=== PATIENT | female | born 1925 | race Caucasian/White ===

== ENCOUNTER 2016-08-17 20:09 | Inpatient (IN) | payer MEDICARE ==
[~2016-08-17] VITALS: Ht 165.1 cm; Wt 56.3 kg
[~2016-08-17 20:09] MED LIST: Z.0.NO CURRENT MEDS
[2016-08-17 20:15] VITALS: BP 140/75; PULSE 85; RESP 16; TEMP 97.9; O2SAT 95
[2016-08-17] MEDS ORDERED: TYLE325T PO (20:25)
[2016-08-17] MEDS ORDERED: SERO25TA PO (20:25)
[2016-08-17] MEDS ORDERED: VITA400T14 PO (20:25)
[2016-08-17] MEDS ORDERED: MEMA21CA PO (20:25)
[2016-08-17] MEDS ORDERED: DENO60P SQ (20:25)
[2016-08-17] MEDS ORDERED: LORA-392 PO (20:25)
[2016-08-17] MEDS ORDERED: TEMA15CA PO (20:25)
[2016-08-17] MEDS ORDERED: FLUT1SPR5 EACH NARE (20:25)
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
[2016-08-17 20:43] LABS: AUTOMATED NEUTROPHIL # 11.2 TH/MM3 (1.8-7.7); BASOPHIL % 0.2 % (0.0-2.0); EOSINOPHIL % 0.1 % (0.0-4.0); HEMATOCRIT 35.6 % (35.0-46.0); HEMO FLAGS DIFF FINAL; LYMPH % 6.7 % (9.0-44.0); LYMPHOCYTE # 0.8 TH/MM3 (1.0-4.8); MEAN CELL VOLUME 90.8 FL (80.0-100.0); MEAN CORPUSCULAR HEMOGLOBIN 30.5 PG (27.0-34.0); MEAN CORPUSCULAR HGB CONC 33.6 % (32.0-36.0); MONO % 3.7 % (0.0-8.0); NEUT % 89.3 % (16.0-70.0); PLATELET COUNT 212 TH/MM3 (150-450); RED BLOOD COUNT 3.92 MIL/MM3 (4.00-5.30); RED CELL DISTRIBUTION WIDTH 13.7 % (11.6-17.2); WHITE BLOOD COUNT 12.6 TH/MM3 (4.0-11.0)
[2016-08-17 20:54] LABS: BICARBONATE 27.7 MEQ/L (21.0-32.0); POTASSIUM 3.5 MEQ/L (3.5-5.1)
[2016-08-17 21:01] LABS: APTT (PATIENT) 26.4 SEC (24.3-30.1); PROTHROMBIN TIME - PATIENT 10.6 SEC (9.8-11.6)
--- NOTE | 2016-08-17 21:01 | RADRPT ---
EXAM DATE/TIME: 08/17/2016 20:42 [place] COMPARISON: No previous studies available for comparison. INDICATIONS : Evaluate right hip fracture. RADIATION DOSE: 11.23 CTDIvol (mGy) MEDICAL HISTORY : Dementia. SURGICAL HISTORY : Left total hip. ENCOUNTER: Initial ACUITY: 1 day PAIN SCALE: 10/10 LOCATION: Right Hip. TECHNIQUE: Volumetric scanning of the hip was performed. Using automated exposure control and adjustment of the mA and/or kV according to patient size, radiation dose was kept as low as reasonably achievable to o btain optimal diagnostic quality images. FINDINGS: The bone density is decreased. A left total hip arthroplasty is noted. There is an impacted and commi nuted fracture of the subcapital femoral neck on the right with slight anterior displacement and apex anterior angulation noted. There are degenerative changes of the lower lumbar spine. Diverticulosis of the sigmoid and descending colon. Atherosclerotic calcifications are seen. Nonacute L4 mild compre ssion deformity. CONCLUSION: 1. Impacted comminuted right femoral neck fracture. Brijesh Amaro MD on August 17, 2016 at 20:58 Board Certified Radiologist. This report was verified electronically.
[2016-08-17] MEDS ORDERED: ACETAMINOPHEN 500 MG CPLT PO ONE (21:15)
[2016-08-17] MEDS ORDERED: MORPHINE SULFATE 4 MG/ML INJ IV PUSH ONE (21:30)
[2016-08-17] MEDS ORDERED: NALOXONE HCL 0.4 MG/ML AMP IV PRN (21:45)
[2016-08-17] MEDS ORDERED: SODIUM CHLORIDE 0.9% FLUSH 10 ML FLUSH IV FLUSH PRN (21:45)
--- NOTE | 2016-08-17 22:36 | HHI.HP ---
[facility]ician Unknown Admission Diagnosis Right femoral neck fracture Diagnoses: Chief Complaint: right hip pain, unable to walk Travel History International Travel<30 Days: No Contact w/Intl Traveler <30 Da: No Traveled to Known Affected Are: No History of Present Illness Written by Ruba Montgomery, acting as scribe for Dr. Vinson on 08/17/16 at 22: 35. This is an 89yo female patient with a PMH of dementia was sent in from [facility] for possible right hip fracture. Patient unable to provide meaningful information, therefore information gathered from patient's caregivers at bedside, prior documentation and SNF information. Patient is a resident at [facility] memory unit. Per caregiver report patient was walking and seemed to be herself then in the afternoon patient began to complain about severe right hip pain and was unable to walk. Outpatient X rays were obtained. Outpatient xray of thoracic spine, lumbar spine showed no acute fractures. Osteopenia. Xray right hip showed shortening of the femoral neck highly suspicious for acute femoral neck fracture. No evidence of dislocation. Osteopenia. Patient sent to the ER for further evaluation. Patient does not remember if she fell down or not. Per caregiver there were no witnessed falls during he day. Patient has caregivers 7AM- 7PM. They are concerned that she fell sometime during the night, but again there was no report of witnessed fall. Pt denies any chest pain, sob, n/v, abdominal pain, focal weakness or numbness. Lower extremity CT reveals: 1. Impacted comminuted right femoral neck fracture. Review of Systems ROS Limitations: Poor Historian Except as stated in HPI: all other systems reviewed are Neg Past Family Social History Past Medical History Alzheimer's Dementia agitation/anxiety compression fracture L4, Past Surgical History Appendectomy Reported Medications Tylenol (Acetaminophen) 325 Mg Tab 650 Mg PO TID PRN Temazepam 15 Mg Cap 15 Mg PO HS PRN Ativan (Lorazepam) 0.5 Mg Tab 0.5 Mg PO BID PRN Prolia Inj (Denosumab) 60 Mg/Ml Inj 60 Mg SQ Q180D Namenda Xr (Memantine) 21 Mg Caper 21 Mg PO DAILY Seroquel (Quetiapine Fumarate) 25 Mg Tab 12.5 Mg PO BID Vitamin D2 (Ergocalciferol) 400 Unit Tab 50,000 Units PO WEEKLY Flonase Nasal [place] (Fluticasone Nasal [place]) 50 Mcg/Act [place] 50 Mcg EACH NARE DAILY Allergies: Coded Allergies: Codeine (Verified Allergy, Severe, HALLUCINATIONS, 05/02/07) Demerol (Verified Allergy, Severe, HALLUCINATIONS, 05/02/07) Percodan (Verified Allergy, Severe, HALLUCINATIONS, 05/02/07) Ampicillin (Verified Allergy, Unknown, 05/02/07) Darvon (Verified Allergy, Unknown, 05/02/07) Indocin (Verified Allergy, Unknown, 05/02/07) Uncoded Allergies: ALL CHEMICALS (Allergy, Severe, DYSPNEA, 04/30/07) Active Ordered Medications Current Medications Medications (Trade) Dose Ordered Sig/Mary Beth Route Start Time Stop Time Status Last Admin (NS Flush) 2 ml UNSCH PRN IV FLUSH 08/17/16 21:45 (NS Flush) 2 ml BID IV FLUSH 08/18/16 09:00 (Narcan Inj) 0.4 mg UNSCH PRN IV 08/17/16 21:45 (Morphine Inj) 2 mg Q3H PRN IV PUSH 08/17/16 21:45 Family History Family medical history unable to obtain Social History Lives in memory unit at [facility] has caregivers from 7AM-7PM Patient has Court appointed guardian Reina Siddiqi Per caregiver patient does occasionally drink- caregivers found a bottle of vodka under patient's bed tobacco use- reports she smoked in the past but not for a long time Physical Exam Vital Signs Vital Signs Date Time Temp Pulse Resp B/P Pulse Ox O2 Delivery O2 Flow Rate FiO2 08/17/16 20:15 97.9 85 16 140/75 95 Physical Exam GENERAL: This is a well-nourished, well-developed patient, pleasantly confused SKIN: No rashes, ecchymoses or lesions. Cool and dry. HEAD: Atraumatic. Normocephalic. No temporal or scalp tenderness. EYES: Extraocular motions intact. No scleral icterus. No injection or drainage. CARDIOVASCULAR: Regular rate and rhythm without murmurs, gallops, or rubs. RESPIRATORY: Clear to auscultation. Breath sounds equal bilaterally. No wheezes , rales, or rhonchi. GASTROINTESTINAL: Abdomen soft, non-tender, nondistended. No hepato-splenomegaly , or palpable masses. No guarding. MUSCULOSKELETAL: Right lower extremity shortened. No calf tenderness. Negative Homans sign bilaterally. NEUROLOGICAL: pleasantly confused. 4 out of 5 muscle strength in all muscle groups, RLE limited ROM due to pain. Normal speech. Laboratory Laboratory Tests Test 08/17/16 20:27 White Blood Count 12.6 Red Blood Count 3.92 Hemoglobin 12.0 Hematocrit 35.6 Mean Corpuscular Volume 90.8 Mean Corpuscular Hemoglobin 30.5 Mean Corpuscular Hemoglobin 33.6 Concent Red Cell Distribution Width 13.7 Platelet Count 212 Mean Platelet Volume 8.2 Neutrophils (%) (Auto) 89.3 Lymphocytes (%) (Auto) 6.7 Monocytes (%) (Auto) 3.7 Eosinophils (%) (Auto) 0.1 Basophils (%) (Auto) 0.2 Neutrophils # (Auto) 11.2 Lymphocytes # (Auto) 0.8 Monocytes # (Auto) 0.5 Eosinophils # (Auto) 0.0 Basophils # (Auto) 0.0 CBC Comment DIFF FINAL Differential Comment Prothrombin Time 10.6 Prothromb Time International 1.0 Ratio Activated Partial 26.4 Thromboplast Time Sodium Level 137 Potassium Level 3.5 Chloride Level 100 Carbon Dioxide Level 27.7 Anion Gap 9 Blood Urea Nitrogen 13 Creatinine 0.82 Estimat Glomerular Filtration 66 Rate Random Glucose 160 Calcium Level 8.7 Blood Type O POSITIVE Antibody Screen NEGATIVE Blood Bank Comment Result Diagram: 08/17/16202608/17/162026 Imaging Last Impressions Lower Extremity CT 08/17/16 0000 Signed Impressions: Service Date/Time: Wednesday, August 17, 2016 20:42 - CONCLUSION: 1. Impacted comminuted right femoral neck fracture. Brijesh Amaro MD Assessment and Plan Problem List: (1) Fracture of femoral neck, right ICD Code: S72.001A Status: Acute (2) Alzheimer's dementia ICD Code: G30.9 Status: Chronic Assessment and Plan This is an 89yo female patient with a PMH of dementia was sent in from [facility] for possible right hip fracture. Patient unable to provide meaningful information, therefore information gathered from patient's caregivers at bedside, prior documentation and SNF information. Patient is a resident at [facility]. severe right hip pain and was unable to walk. Lower extremity CT reveals: 1. Impacted comminuted right femoral neck fracture. Right femoral neck fracture CT hip reveals: Impacted comminuted right femoral neck fracture pain control with consult to orthopedic surgery Alzheimer's Dementia agitation/anxiety Continue home medication regiment as indicated Discussed with ER provider, nursing, patient and caregivers at bedside. Patient has Court appointed guardian Reina Siddiqi This note was transcribed by scribe [Ruba Montgomery]. I, Dr. Leela Vinson personally performed the history, physical exam, and medical decision making; and confirmed the accuracy of the information in the transcribed note. Authenticated by Dr. Leela Vinson on 08/17/16 at 22:35. Physician Certification 2 Midnight Certification Type: Admission for Inpatient Services Order for Inpatient Services The services are ordered in accordance with Medicare regulations or non- Medicare payer requirements, as applicable. In the case of services not specified as inpatient-only, they are appropriately provided as inpatient services in accordance with the 2-midnight benchmark. Estimated LOS (days): 3 days is the estimated time the patient will need to remain in the hospital, assuming treatment plan goals are met and no additional complications. Post-Hospital Plan: Not yet determined Problem Qualifiers (1) Fracture of femoral neck, right: Qualified Code: S72.001A - Closed fracture of neck of right femur, initial encounter Ruba Montgomery August 17, 2016 22:35 Leela Vinson MD Sep 05, 2016 12:54
[2016-08-17 23:38] VITALS: BP 155/77; PULSE 93; RESP 19; TEMP 97.4; O2SAT 95
[2016-08-18] MEDS ORDERED: ACETAMINOPHEN 500 MG CPLT PO PRN (00:30)
[2016-08-18] MEDS: MORPHINE SULFATE 4 MG/ML INJ IV PUSH PRN (02:12)
--- NOTE | 2016-08-18 06:21 | PD.ORT.PN ---
Subjective Subjective Remarks s/p right hip fracture patient came from nursing facility. she is demented and not sure of how she hurt her hip. reports right hip pain. denies any other pain. Objective Vitals Vital Signs Date Time Temp Pulse Resp B/P Pulse Ox O2 Delivery O2 Flow Rate FiO2 08/18/16 02:19 16 08/17/16 23:38 97.4 93 19 155/77 95 08/17/16 20:15 97.9 85 16 140/75 95 Result Diagram: 08/17/16202608/17/162026 Other Results Laboratory Tests Test 08/17/16 20:27 Prothrombin Time 10.6 SEC (9.8-11.6) Prothromb Time International 1.0 RATIO Ratio Objective Remarks RLE: pain with motion of her hip. no pain in knee or ankle. NVI distally Assessment & Plan Assessment and Plan 1) Right Femoral Neck Fx -npo -consents -surgery this AM for bipolar veronica arthroplasty Bib Selby August 18, 2016 06:21
[2016-08-18] MEDS ORDERED: NORC5TAB PO (06:29)
[2016-08-18] MEDS ORDERED: XARE10TA PO (06:29)
[2016-08-18] MEDS ORDERED: ERGO1CAP30 PO (06:30)
[2016-08-18] MEDS ORDERED: VITA2000 PO (06:30)
[2016-08-18] MEDS ORDERED: CALCTAB19 PO (06:30)
[2016-08-18] MEDS ORDERED: MAGNESIUM HYDROXIDE SUSP 30 ML CUP PO PRN (08:00)
[2016-08-18] MEDS ORDERED: TEMAZEPAM 15 MG CAP PO PRN (08:00)
[2016-08-18] MEDS ORDERED: ONDANSETRON HCL 4 MG/2 ML VIAL IV PUSH PRN (08:00)
[2016-08-18] MEDS ORDERED: PILL SPLITTER OTHER PRN (08:15)
--- NOTE | 2016-08-18 08:21 | MB ---
cc: ADENIKE LI DATE OF ADMISSION 08/17/2016 DATE OF CONSULTATION 08/18/2016 REASON FOR CONSULTATION Right femoral neck fracture. CONSULTING PHYSICIAN Dr. Royal. HISTORY Ms. Ventura is an 89-year female who has significant dementia. She is at [facility]. The patient has significant dementia and is unable to give any significant history. She has a caregiver. She normally is able to walk relatively well. She had a fall which resulted in right hip pain. She has been unable to stand or ambulate since her fall. The fall was not witnessed. She presented to the emergency room where x-rays revealed a comminuted right femoral neck fracture. She is awake but confused in the emergency department.. PAST MEDICAL HISTORY ILLNESSES Dementia. Anxiety. Osteoporosis. SURGERIES Appendectomy. MEDICATIONS 1. Tylenol. 2. Temazepam. 3. Ativan. 4. Prolia. 5. Namenda. 6. Seroquel. 7. Vitamin D. 8. Flonase. ALLERGIES CODEINE. DEMEROL. PERCODAN. AMPICILLIN. DARVON. INDOCIN. FAMILY HISTORY Unobtainable. SOCIAL HISTORY The patient lives in [facility]. She has significant dementia and is an unable to give further history. REVIEW OF SYSTEMS Unobtainable secondary to dementia. The patient's only complaint currently is her right hip. PHYSICAL EXAMINATION GENERAL: The patient is a thin, 89-year female who is awake but confused. She is thin but appears well-nourished. VITAL SIGNS: Temperature 97.4, pulse 93, respirations 19, blood pressure 155/74, O2 sat 95% on room air. HEENT: The patient is normocephalic. Pupils are equal. NECK: Soft, nontender. Trachea is midline. ABDOMEN: Soft, nontender, nondistended. EXTREMITIES: Examination of bilateral upper extremities reveals no pain with shoulder, elbow or wrist motion. She has good capillary refill in all fingers. Sensation is intact in all fingers. Radial pulses are palpable. Examination of the left leg reveals no pain with hip, knee or ankle motion. Skin is intact. Dorsalis pedis pulses palpable. Sensation is intact. Examination of the right leg reveals pain with any hip motion. She has no tenderness around her knee, tibia or ankle. Skin is intact. Dorsalis pedis pulses palpable. X-RAYS CT scan of the right hip was reviewed. CT scan reveals a mildly comminuted, displaced right femoral neck fracture. IMPRESSION 1. Dementia. 2. Osteoporosis 3. Displaced right femoral neck fracture. PLAN The treatment options were discussed with the patient as well as her caregiver. At this point I would recommend a right hip hemiarthroplasty. The risks of surgery include bleeding, infection, injury to arteries, nerves and blood vessels, hip dislocation, leg length discrepancy as well as medical complications including blood clot, stroke, heart attack and . All questions were answered. I will plan on surgery today. A mid-level provider in my office, nurse practitioner or PA, may see this patient on a follow-up basis and continue to implement the objective of this plan including: Starting or adjusting medications, injections of muscle, tendon, bursa or joints, cast application, orthotic or brace application, physical therapy, further radiographic studies including x-ray, MRI, CT, ultrasounds or bone scan, vascular studies, neurologic studies, or other specialist consultations, and proceeding with surgical management as appropriate. MD EYAL Irving/ERIC /7:37 AM /7:58 AM
[2016-08-18] MEDS ORDERED: TRANEXAMIC ACID INJ 900 MG in SODIUM CHLORIDE 0.9% INJ 100 ML IV SCH (08:30)
[2016-08-18] MEDS ORDERED: GENTAMICIN SULFATE 80 MG/2 ML VIAL ONE (08:33)
[2016-08-18] MEDS ORDERED: VANCOMYCIN HCL 1000 MG VIAL ONE (08:33)
[2016-08-18] MEDS ORDERED: ceFAZolin INJ 1,000 MG VIAL ONE (08:33)
[2016-08-18] MEDS: DOCUSATE SODIUM 100 MG CAP PO SCH ×2 (09:00→19:41)
[2016-08-18] MEDS: SODIUM CHLORIDE 0.9% FLUSH 10 ML FLUSH IV FLUSH SCH ×2 (09:00→19:42)
[2016-08-18] MEDS: QUEtiapine FUMARATE 25 MG TAB PO SCH ×2 (09:00→19:41)
[2016-08-18] MEDS ORDERED: MEMANTINE 21 MG PO SCH (09:00)
[2016-08-18] MEDS: SENNOSIDES 8.6 MG TAB PO SCH (09:00)
--- NOTE | 2016-08-18 09:52 | PD.OP ---
cc: Anthony Montgomery MD Operative Report Date of Surgery: August 18, 2016 Preoperative Diagnosis: right femoral neck fracture Postoperative Diagnosis: Procedure: right hip veronica-arthroplasty Anesthesia: gen Surgeon: Anthony Montgomery Cap Sewer(s): REYNA Blank PA-C The surgical procedure was assisted by my physician kindergarten assistant. My P.A. presence was necessary throughout this case for the manipulation and positioning of the surgical extremity. My P.A. was assisting me throughout the duration of this procedure. The skill set of a physician kindergarten assistant was medically necessary to complete this procedure. During the surgical case the neurosurgical nurse was working at the back table and the physician kindergarten assistant was directly assisting me. Operation and Findings: PLAN OF ACTIVITY Weight bear as tolerated. IMPLANTS USED DePuy Corail size [14] stem with size [44] bipolar head and [+1.5 standard] neck. DRAIN: 7 mm Bhavesh-Flynn drain DETAILS OF PROCEDURE This patient was brought into the operating room and placed on the OR table. The patient was given anesthesia. The patient received IV antibiotics. The patient was then placed in lateral decubitus position. The hip and leg were prepped with alcohol, followed by Hibiclens and draped in a usual sterile fashion. Clean air was used for this procedure. Time out procedure was performed. The procedure began with a 5 inch incision over the posterolateral hip. The subcutaneous tissue was dissected with the Bovie. The iliotibial band were split in line with fibers. The Charnley retractor was placed. The piriformis and external rotators were released from the femur and tagged with a #1 Vicryl suture. The capsule is now incised and tagged with #1 Vicryl. The femoral neck fracture was now visualized. A corkscrew was now used to remove the femoral head. The femoral head was sized and measured. Soft tissue was now protected. The hip skid was placed underneath the femoral neck. An oscillating saw was used to make a femoral neck cut. At this point attention was turned to preparation of the proximal femur. A box osteotome was used to remove the lateral cortex of the femoral neck. The T- handle reamer was used to open the femoral canal. Next, the canal was broached. A lateralizing reamer was used to help lateralize the prosthesis. At this point a trial head and neck were placed. The hip was reduced. The patient was found to have excellent stability with good range of motion. Trial components were removed. Soft tissue and bone were thoroughly irrigated. A Corail stem was now opened. The stem was now impacted into the proximal femur. Care was taken to keep appropriate anteversion. The head and neck were now impacted onto the stem. The hip was again reduced. The hip was found to have good range of motion and good stability. Leg lengths were clinically equal. The wound was thoroughly irrigated. The capsule, piriformis and iliotibial band were closed with #1 Vicryl. Subcutaneous tissue was closed with 3-0 Vicryl. The skin was closed with michell. A sterile dressing was applied with Primapore. The patient was placed into a knee immobilizer. The patient was awakened and transferred to the recovery room in stable condition. Needle and sponge counts were correct. Anthony Montgomery MD August 18, 2016 09:52
[2016-08-18] MEDS ORDERED: MORPHINE SULFATE 4 MG/ML INJ IV PUSH PRN (10:00)
[2016-08-18] MEDS ORDERED: ACETAMINOPHEN/HYDROcodone 325 MG/5 MG TAB PO PRN (10:00)
[2016-08-18] MEDS ORDERED: Post-op Orders (for Pharmacy) MISC XX ONE (10:00)
[2016-08-18] MEDS ORDERED: SODIUM CHLORIDE 0.9% FLUSH 5 ML FLUSH IVF PRN (10:00)
[2016-08-18] MEDS ORDERED: DO NOT ADM ANY ANTICOAGULANT DRUGS PRN (10:30)
--- NOTE | 2016-08-18 11:15 | RADRPT ---
EXAM DATE/TIME: 08/18/2016 10:32 [facility] COMPARISON: No previous studies available for comparison. INDICATIONS : Post op right hip surgery. MEDICAL HISTORY : None. SURGICAL HISTORY : left hip surgery ENCOUNTER: Initial ACUITY: 1 day PAIN SCORE: Non-responsive. LOCATION: Right hip and pelvis FINDINGS: Postoperative changes of right total hip replacement noted. There are skin michell laterally and a dr cornelian in the soft tissues. Left hip previously replaced as well. No complications identified. CONCLUSION: 1. Postoperative recent right total hip replacement. Previous left hip replacement. Phill Cárdenas MD on August 18, 2016 at 11:12 Board Certified Radiologist. This report was verified electronically.
[2016-08-18] MEDS ORDERED: PROPOFOL 200 MG/20 ML AMP IV ONE (12:00)
[2016-08-18] MEDS ORDERED: PHENYLEPH/NS 1000 MCG/10 ML SYR IV ONE (12:00)
[2016-08-18] MEDS ORDERED: SODIUM CHLOR 0.9% 250 ML INJ 500 ML IV ONE (12:00)
[2016-08-18] MEDS ORDERED: ERGOCALCIFEROL (VIT D2) 50,000 UNIT CAP PO ONE (12:00)
[2016-08-18] MEDS ORDERED: PHENYLEPHRINE HCL 10 MG/ML VIAL IV ONE (12:00)
[2016-08-18 13:40] VITALS: BP 147/70; PULSE 99; RESP 16; TEMP 97.5; O2SAT 95
[2016-08-18] MEDS: ACETAMINOPHEN/HYDROcodone 325 MG/5 MG TAB PO PRN ×2 (14:53→19:41)
[2016-08-18 15:49] LABS: AUTOMATED NEUTROPHIL # 9.8 TH/MM3 (1.8-7.7); BASOPHIL # 0.1 TH/MM3 (0-0.2); BASOPHIL % 0.5 % (0.0-2.0); EOSINOPHIL # 0.1 TH/MM3 (0-0.4); HEMATOCRIT 34.6 % (35.0-46.0); HEMO FLAGS AUTO DIFF; LYMPH % 10.4 % (9.0-44.0); LYMPHOCYTE # 1.2 TH/MM3 (1.0-4.8); MEAN CELL VOLUME 91.7 FL (80.0-100.0); MEAN CORPUSCULAR HEMOGLOBIN 30.7 PG (27.0-34.0); MEAN CORPUSCULAR HGB CONC 33.5 % (32.0-36.0); NEUT % 82.1 % (16.0-70.0); PLATELET COUNT 198 TH/MM3 (150-450); RED BLOOD COUNT 3.78 MIL/MM3 (4.00-5.30); RED CELL DISTRIBUTION WIDTH 13.9 % (11.6-17.2); WHITE BLOOD COUNT 11.9 TH/MM3 (4.0-11.0)
--- NOTE | 2016-08-18 15:58 | HHI.PR ---
Subjective Remarks Follow-up for right hip fracture. The patient had operative repair of her right hip fracture with orthopedics earlier today. The patient reports that her hip pain is "nearly gone". The patient is seen with her caregiver bedside is all as RN. Therefore the patient states even drink coffee earlier today. The patient has a history of dementia and does not recall any falls or injury to her right hip. RN and patient's caregiver reported that the patient was a bit agitated earlier, and are requesting her home Ativan to be restarted. Objective Vitals Vital Signs Date Time Temp Pulse Resp B/P Pulse Ox O2 Delivery O2 Flow Rate FiO2 08/18/16 13:40 97.5 99 16 147/70 95 08/18/16 13:00 99.6 94 15 130/59 99 Room Air 08/18/16 12:00 83 21 123/65 100 Room Air 08/18/16 11:30 97.4 85 24 126/61 96 Nasal Cannula 2 08/18/16 11:15 84 20 144/71 96 Nasal Cannula 2 08/18/16 11:00 96.6 83 23 130/86 100 Nasal Cannula 2 08/18/16 10:45 91 23 119/65 100 Nasal Cannula 2 08/18/16 10:30 72 10 112/59 100 Nasal Cannula 2 08/18/16 10:15 78 18 154/84 98 Nasal Cannula 2 08/18/16 10:13 97.2 78 16 116/63 98 Nasal Cannula 2 08/18/16 02:19 16 08/17/16 23:38 97.4 93 19 155/77 95 08/17/16 20:15 97.9 85 16 140/75 95 I/O 08/17/16 08/17/16 08/17/16 08/18/16 08/18/16 08/18/16 07:00 15:00 23:00 07:00 15:00 23:00 Intake Total 700 ml Output Total 1250 ml Balance -550 ml Intake Oral 0 ml IV Total 200 ml Other 500 ml Output Urine Total 1050 ml Drainage Total 100 ml Estimated Blood Loss 100 ml Result Diagram: 08/18/16 1436 08/17/162026 Imaging Last Impressions Hip and Pelvis X-Ray 08/18/16 0956 Signed Impressions: Service Date/Time: July 10:32 - CONCLUSION: 1. Postoperative recent right total hip replacement. Previous left hip replacement. Phill Cárdenas MD Lower Extremity CT 08/17/16 0000 Signed Impressions: Service Date/Time: Wednesday, August 17, 2016 20:42 - CONCLUSION: 1. Impacted comminuted right femoral neck fracture. Brijesh Amaro MD Objective Remarks GENERAL: Well-developed well-nourished. In no acute distress. SKIN: Warm and dry. No lesions noted. HEENT: Normocephalic. Pupils equal and round. Mucous membranes pink and moist. CARDIOVASCULAR: Regular rate and rhythm. No murmur appreciated. RESPIRATORY: No accessory muscle use. Clear to auscultation. Breath sounds equal bilaterally. GASTROINTESTINAL: Abdomen soft, non-tender, nondistended. Bowel sounds x4. MUSCULOSKELETAL: Right hip with postoperative dressing, CDI. No clubbing or cyanosis. No edema. NEUROLOGICAL: Awake and alert. No focal neurological deficits. Moves upper and lower extremities spontaneously. Normal speech. PSYCHIATRIC: Pleasantly confused mood and affect; insight and judgment limited. A/P Problem List: (1) Fracture of femoral neck, right ICD Code: S72.001A Status: Acute (2) Alzheimer's dementia ICD Code: G30.9 Status: Chronic Assessment and Plan 89yo female patient with a PMH of dementia was sent in from [facility] for possible right hip fracture after outpatient imaging for right hip pain. Right femoral neck fracture Reviewed: CT hip impacted comminuted right femoral neck fracture. Orthopedic surgery consulted, performed right hip hemiarthroplasty 08/18/16 pain control with oral [place] and IV morphine per orthopedics Activity per orthopedics, WB as tolerated Continue PT Alzheimer's Dementia agitation/anxiety Continue home Seroquel and Ativan as needed Leukocytosis - possibly reactive secondary to injury, rule out infectious etiology Reviewed: WBC 12. Tmax 99.6 perioperatively. Check chest x-ray and UA Incentive spirometry DVT prophylaxis: Lovenox per orthopedic surgery Patient has Court appointed guardian Reina Siddiqi Discharge Planning Discharge planning back to SNF when cleared by orthopedics. Problem Qualifiers (1) Fracture of femoral neck, right: Qualified Code: S72.001A - Closed fracture of neck of right femur, initial encounter Alexy Paula August 18, 2016 15:58
[2016-08-18 16:00] VITALS: BP 135/63; PULSE 87; RESP 16; TEMP 98.3; O2SAT 94
[2016-08-18 16:04] LABS: BICARBONATE 24.1 MEQ/L (21.0-32.0); POTASSIUM 3.6 MEQ/L (3.5-5.1)
[2016-08-18 16:21] LABS: PLATELET ESTIMATE SMEAR NORMAL (NORMAL); PLATELET MORPHOLOGY NORMAL (NORMAL); SCAN/DIFF AUTO DIFF CONFIRMED
[2016-08-18 16:35] LABS: BLOOD, URINE SMALL (NEG); COMMENT (UR) CULTURE INDICATED; CULTURE IF INDICATED CULTURE INDICATED; GLUCOSE,URINE NEG (NEG); KETONE, URINE 40 mg/dL (NEG); NITRITE,URINE NEG (NEG); PH, URINE 7.5 (5.0-8.5); URINE COLOR YELLOW (YELLW/STRAW)
--- NOTE | 2016-08-18 17:12 | RADRPT ---
EXAM DATE/TIME: 08/18/2016 16:28 [facility] COMPARISON: No previous studies available for comparison. INDICATIONS : Fever. MEDICAL HISTORY : None. SURGICAL HISTORY : None. ENCOUNTER: Initial ACUITY: 1 day PAIN SCORE: 0/10 LOCATION: Bilateral chest FINDINGS: A single view of the chest demonstrates the lungs to be symmetrically aerated without evidence of mas s, infiltrate or effusion. The cardiomediastinal contours are unremarkable. Osseous structures are intact. CONCLUSION: No acute disease. Matt Carter MD on August 18, 2016 at 17:09 Board Certified Radiologist. This report was verified electronically.
--- NOTE | 2016-08-18 17:16 | EKG ---
Date Performed: 08/17/2016 Time Performed: 20:24:33 PTAGE: 89 years EKG: Sinus rhythm NONSPECIFIC T-WAVE ABNORMALITY BORDERLINE ECG PREVIOUS TRACING : 04/30/2007 14.16 Compared to the previous tracing, non-specific ST/T wave ch anges noted DOCTOR: Jamir Strange Interpretating Date/Time 08/18/2016 17:16:14
[2016-08-18] MEDS: SODIUM CHLORIDE 0.9% FLUSH 5 ML FLUSH IVF SCH (19:42)
[2016-08-18 20:00] VITALS: BP 165/90; PULSE 97; RESP 22; TEMP 96.1; O2SAT 96
[2016-08-18 20:43] VITALS: PULSE 96
[2016-08-19] VITALS (9 sets, daily range): BP systolic 110–178; BP diastolic 55–84; PULSE 92–111; RESP 18–24; TEMP 96.7–99; O2SAT 94–98
[2016-08-19] MEDS: ACETAMINOPHEN/HYDROcodone 325 MG/5 MG TAB PO PRN ×4 (04:05→17:32)
--- NOTE | 2016-08-19 06:42 | PD.ORT.PN ---
Subjective Subjective Remarks POD 1 s/p Right hip hemiarthroplasty patient asleep. aid at bedside reports patient significantly demented. has been trying to get out of bed Objective Vitals Vital Signs Date Time Temp Pulse Resp B/P Pulse Ox O2 Delivery O2 Flow Rate FiO2 08/19/16 04:00 98.6 99 22 126/66 97 08/19/16 00:00 96.7 103 24 134/72 94 08/18/16 20:43 96 08/18/16 20:00 96.1 97 22 165/90 96 08/18/16 16:00 98.3 87 16 135/63 94 08/18/16 13:40 97.5 99 16 147/70 95 08/18/16 13:00 99.6 94 15 130/59 99 Room Air 08/18/16 12:00 83 21 123/65 100 Room Air 08/18/16 11:30 97.4 85 24 126/61 96 Nasal Cannula 2 08/18/16 11:15 84 20 144/71 96 Nasal Cannula 2 08/18/16 11:00 96.6 83 23 130/86 100 Nasal Cannula 2 08/18/16 10:45 91 23 119/65 100 Nasal Cannula 2 08/18/16 10:30 72 10 112/59 100 Nasal Cannula 2 08/18/16 10:15 78 18 154/84 98 Nasal Cannula 2 08/18/16 10:13 97.2 78 16 116/63 98 Nasal Cannula 2 I/O 08/18/16 08/18/16 08/18/16 08/19/16 08/19/16 08/19/16 07:00 15:00 23:00 07:00 15:00 23:00 Intake Total 820 ml 480 ml 100 ml Output Total 1350 ml 430 ml 215 ml Balance -530 ml 50 ml -115 ml Intake Oral 120 ml 480 ml 100 ml IV Total 200 ml Other 500 ml Output Urine Total 1150 ml 350 ml 175 ml Drainage Total 100 ml 80 ml 40 ml Estimated Blood Loss 100 ml # Voids 0 # Bowel Movements 0 0 0 Result Diagram: 08/18/16 1436 08/18/16 1436 Imaging Last 24 hours Impressions Hip and Pelvis X-Ray 08/18/16 0948 Signed Impressions: Service Date/Time: July 10:32 - CONCLUSION: 1. Postoperative recent right total hip replacement. Previous left hip replacement. Phill Cárdenas MD Objective Remarks RLE: dressings clean and dry. intact. NVI. +drain. +knee brace Assessment & Plan Assessment and Plan 1) Right Femoral Neck Fx s/p bipolar hemiarthroplasty - POD 1 -WBAT -daily dressing changes POD 2 -knee brace while in bed -plan for DC of drain with dressing change -posterior hip precautions -CM for arrangement back to rehab when safe with PT and medically stable -f/u with Radha or LUIS in 2 weeks -DVT prophylaxis with lovenox and transition to xarelto on discharge -scripts and 3008 on chart Bib Selby August 19, 2016 06:42
[2016-08-19 06:55] LABS: AUTOMATED NEUTROPHIL # 8.1 TH/MM3 (1.8-7.7); BASOPHIL % 0.4 % (0.0-2.0); EOSINOPHIL % 0.5 % (0.0-4.0); HEMATOCRIT 33.2 % (35.0-46.0); HEMO FLAGS DIFF FINAL; LYMPH % 9.5 % (9.0-44.0); LYMPHOCYTE # 0.9 TH/MM3 (1.0-4.8); MEAN CELL VOLUME 92.2 FL (80.0-100.0); MEAN CORPUSCULAR HEMOGLOBIN 30.5 PG (27.0-34.0); NEUT % 84.6 % (16.0-70.0); PLATELET COUNT 161 TH/MM3 (150-450); RED CELL DISTRIBUTION WIDTH 13.7 % (11.6-17.2); WHITE BLOOD COUNT 9.6 TH/MM3 (4.0-11.0)
[2016-08-19 07:14] LABS: ALKALINE PHOSPHATASE 54 U/L (45-117); ALT (GPT) 15 U/L (10-53); ANION GAP 10 MEQ/L (5-15); AST (GOT) 19 U/L (15-37); BLOOD UREA NITROGEN 14 MG/DL (7-18); CHLORIDE 104 MEQ/L (98-107); GLOMERULAR FILTRATION RATE 116 ML/MIN (>89); POTASSIUM 3.3 MEQ/L (3.5-5.1); SODIUM (NA) 139 MEQ/L (136-145); TOTAL BILIRUBIN ADULT 0.7 MG/DL (0.2-1.0)
[2016-08-19] MEDS: SODIUM CHLORIDE 0.9% FLUSH 5 ML FLUSH IVF SCH ×2 (09:00→21:00)
[2016-08-19] MEDS: cefTRIAXone INJ 1,000 MG in SODIUM CHLORIDE 0.9% INJ 100 ML IV SCH (09:00)
[2016-08-19] MEDS: QUEtiapine FUMARATE 25 MG TAB PO SCH ×2 (09:24→21:15)
[2016-08-19] MEDS: DOCUSATE SODIUM 100 MG CAP PO SCH ×2 (09:24→21:15)
[2016-08-19] MEDS: ENOXAPARIN SODIUM 30 MG/0.3 ML SYRINGE SQ SCH (09:24)
[2016-08-19] MEDS: SENNOSIDES 8.6 MG TAB PO SCH (09:24)
[2016-08-19] MEDS: CHOLECALCIFEROL (VIT D3) 5000 UNIT CAP PO SCH (09:24)
[2016-08-19] MEDS: SODIUM CHLORIDE 0.9% FLUSH 10 ML FLUSH IV FLUSH SCH ×2 (09:42→21:00)
[2016-08-19] MEDS ORDERED: MAGNESIUM HYDROXIDE SUSP 30 ML CUP PO ONE (11:00)
[2016-08-19] MEDS ORDERED: DOCUSATE SODIUM 50 MG/SENNA 8.6 MG TAB PO ONE (11:00)
[2016-08-19] MEDS ORDERED: POTASSIUM CHLORIDE 10 MEQ CONTROLLED RELEASE TAB PO ONE (11:00)
[2016-08-19] MEDS: MORPHINE SULFATE 4 MG/ML INJ IV PUSH PRN (21:15)
--- NOTE | 2016-08-19 23:53 | HHI.PR ---
Subjective Remarks Patient seen the morning of 08/19. Patient reportedly refused medications. She is disoriented but appears pleasant. Upon further discussion she is agreed to take her medications. She denies any chest pain or shortness of breath. Objective Vital Signs Date Time Temp Pulse Resp B/P Pulse Ox O2 Delivery O2 Flow Rate FiO2 08/19/16 18:32 18 08/19/16 16:00 99.0 98 20 178/84 98 08/19/16 12:00 97.2 108 22 144/65 96 08/19/16 09:25 94 08/19/16 08:06 111 08/19/16 08:00 97.3 105 18 173/82 97 08/19/16 04:00 98.6 99 22 126/66 97 08/19/16 00:00 96.7 103 24 134/72 94 I/O 08/18/16 08/18/16 08/18/16 08/19/16 08/19/16 08/19/16 07:00 15:00 23:00 07:00 15:00 23:00 Intake Total 820 ml 480 ml 100 ml Output Total 1350 ml 430 ml 215 ml 300 ml Balance -530 ml 50 ml -115 ml -300 ml Intake Oral 120 ml 480 ml 100 ml IV Total 200 ml Other 500 ml Output Urine Total 1150 ml 350 ml 175 ml 300 ml Drainage Total 100 ml 80 ml 40 ml 0 ml Estimated Blood Loss 100 ml # Voids 0 # Bowel Movements 0 0 0 Result Diagram: 08/19/1662608/19/16626 Objective Remarks GENERAL: patient lying in bed. Appears comfortable.disoriented SKIN: Warm and dry. HEAD: Normocephalic. EYES: No scleral icterus. No injection or drainage. NECK: Supple, trachea midline. No JVD. CARDIOVASCULAR: Regular rate and rhythm without murmurs, gallops, or rubs. RESPIRATORY: Breath sounds equal bilaterally. No accessory muscle use. GASTROINTESTINAL: Abdomen soft, non-tender, nondistended. MUSCULOSKELETAL: No cyanosis, or edema. postoperative hip not examined. Peripheral perfusion intact. BACK: Nontender without obvious deformity. No CVA tenderness. A/P Assessment and Plan ==== 08/19/16 Constipation. Laxatives ordered. Hypokalemia. 3.3. Replace. 89yo female patient with a PMH of dementia was sent in from [facility] for possible right hip fracture after outpatient imaging for right hip pain. //Postoperative right hip hemiarthroplasty performed 08/18/16 for impacted comminuted right femoral neck fracture. pain control with oral [place] and IV morphine per orthopedics Activity per orthopedics, WB as tolerated Continue PT Postoperative constipation. Laxatives ordered. Monitor.// //Alzheimer's Dementia agitation/anxiety Continue home Seroquel, Namenda, Ativan as needed //Leukocytosis - possibly reactive secondary to injury. Improving. -On 08/17 WBC 12.6 Tmax 99.6 perioperatively. -Chest x-ray with no acute findings, urinalysis with 25 white blood cells, 37 RBCs, however mixed natan. Incentive spirometry DVT prophylaxis: Lovenox per orthopedic surgery Patient has Court appointed guardian Reina Siddiqi Discharge Planning await bowel movement Patient will need rehabilitation/SNF Felice Blackwell MD August 19, 2016 23:53
[2016-08-20] VITALS (8 sets, daily range): BP systolic 100–139; BP diastolic 54–75; PULSE 94–106; RESP 16–22; TEMP 96.4–98.9; O2SAT 93–96
[2016-08-20] MEDS: ACETAMINOPHEN/HYDROcodone 325 MG/5 MG TAB PO PRN ×2 (02:03→19:54)
[2016-08-20] MEDS ORDERED: SODIUM CHLOR 0.9% 1000 ML INJ 1,000 ML IV SCH (02:30)
[2016-08-20] MEDS: MORPHINE SULFATE 4 MG/ML INJ IV PUSH PRN (05:15)
[2016-08-20 06:31] LABS: AUTOMATED NEUTROPHIL # 8.7 TH/MM3 (1.8-7.7); BASOPHIL % 0.5 % (0.0-2.0); EOSINOPHIL % 0.3 % (0.0-4.0); HEMO FLAGS DIFF FINAL; LYMPH % 6.3 % (9.0-44.0); LYMPHOCYTE # 0.6 TH/MM3 (1.0-4.8); MEAN CELL VOLUME 91.5 FL (80.0-100.0); MONO % 4.9 % (0.0-8.0); PLATELET COUNT 160 TH/MM3 (150-450); RED BLOOD COUNT 3.28 MIL/MM3 (4.00-5.30); RED CELL DISTRIBUTION WIDTH 13.7 % (11.6-17.2); WHITE BLOOD COUNT 9.9 TH/MM3 (4.0-11.0)
[2016-08-20 07:11] LABS: MAGNESIUM 2.4 MG/DL (1.5-2.5); POTASSIUM 3.6 MEQ/L (3.5-5.1)
[2016-08-20] MEDS: LORazepam 0.5 MG TAB PO PRN (09:14)
[2016-08-20] MEDS: SODIUM CHLORIDE 0.9% FLUSH 10 ML FLUSH IV FLUSH SCH ×2 (09:14→19:55)
[2016-08-20] MEDS: DOCUSATE SODIUM 100 MG CAP PO SCH ×2 (09:14→19:54)
[2016-08-20] MEDS: CHOLECALCIFEROL (VIT D3) 5000 UNIT CAP PO SCH (09:14)
[2016-08-20] MEDS: QUEtiapine FUMARATE 25 MG TAB PO SCH ×2 (09:14→19:54)
[2016-08-20] MEDS: SENNOSIDES 8.6 MG TAB PO SCH (09:14)
[2016-08-20] MEDS: ENOXAPARIN SODIUM 30 MG/0.3 ML SYRINGE SQ SCH (09:14)
[2016-08-20] MEDS: cefTRIAXone INJ 1,000 MG in SODIUM CHLORIDE 0.9% INJ 100 ML IV SCH (09:14)
[2016-08-20] MEDS: SODIUM CHLORIDE 0.9% FLUSH 5 ML FLUSH IVF SCH ×2 (09:15→19:55)
[2016-08-20] MEDS: MAGNESIUM HYDROXIDE SUSP 30 ML CUP PO ONE ×2 (12:45→16:42)
[2016-08-20] MEDS: DOCUSATE SODIUM 50 MG/SENNA 8.6 MG TAB PO ONE ×2 (12:45→16:43)
--- NOTE | 2016-08-20 12:51 | PD.ORT.PN ---
Subjective Post Op Day #: 2 Subjective Remarks Laying in bed, sleeping but arousable. Admits right hip pain well controlled. Slightly confused. Objective Vitals Vital Signs Date Time Temp Pulse Resp B/P Pulse Ox O2 Delivery O2 Flow Rate FiO2 08/20/16 11:59 96.9 94 19 116/58 95 08/20/16 09:30 93 21 08/20/16 07:57 98.7 102 19 107/54 96 08/20/16 04:00 96.9 95 22 100/54 94 08/20/16 00:00 96.4 96 22 132/75 94 08/19/16 21:14 92 08/19/16 20:00 98.2 98 22 110/55 95 08/19/16 18:32 18 08/19/16 16:00 99.0 98 20 178/84 98 I/O 08/19/16 08/19/16 08/19/16 08/20/16 08/20/16 08/20/16 07:00 15:00 23:00 07:00 15:00 23:00 Intake Total 100 ml 481 ml Output Total 215 ml 300 ml 20 ml 170 ml Balance -115 ml -300 ml -20 ml 311 ml Intake Oral 100 ml 200 ml IV Total 281 ml Output Urine Total 175 ml 300 ml 150 ml Drainage Total 40 ml 0 ml 20 ml 20 ml # Bowel Movements 0 Result Diagram: 08/20/16 0549 08/20/16 0549 Imaging Last 24 hours Impressions Hip and Pelvis X-Ray 08/18/16 0948 Signed Impressions: Service Date/Time: July 10:32 - CONCLUSION: 1. Postoperative recent right total hip replacement. Previous left hip replacement. Phill Cárdenas MD Procedures right bipolar hip Objective Remarks RLE: dressings clean and dry. intact. NVI. +drain. +knee brace Assessment & Plan Ortho Post Op Day #: 2 Problem List: (1) Fracture of femoral neck, right (2) Alzheimer's dementia Assessment and Plan 1) Right Femoral Neck Fx s/p bipolar hemiarthroplasty - POD 2 -WBAT -daily dressing changes -knee brace while in bed -posterior hip precautions -CM for arrangement back to rehab when safe with PT and medically stable -f/u with Garcia or PA in 2 weeks -DVT prophylaxis with lovenox and transition to xarelto on discharge -scripts and 3008 on chart - clear for discharge from an orthopedic standpoint Monica Chilel August 20, 2016 12:51
[2016-08-20] MEDS ORDERED: SODIUM CHLOR 0.9% 250 ML INJ 250 ML IV ONE (18:00)
[2016-08-20] MEDS: SODIUM CHLOR 0.9% 1000 ML INJ 1,000 ML IV SCH ×2 (18:09→19:55)
[2016-08-20] MEDS ORDERED: BISACODYL 10 MG SUPP RECTAL PRN (23:45)
--- NOTE | 2016-08-20 23:54 | HHI.PR ---
Subjective Remarks Patient seen today around noon. She is again disoriented but pleasant. She is medications, however has subsequently accepted laxatives. She denies any pain, however does experience pain when she moves in bed. laxatives given again for constipation. placed for obstruction. Objective Vital Signs Date Time Temp Pulse Resp B/P Pulse Ox O2 Delivery O2 Flow Rate FiO2 08/20/16 20:00 97.5 106 16 124/65 95 08/20/16 15:34 98.9 106 19 139/71 96 08/20/16 11:59 96.9 94 19 116/58 95 08/20/16 09:30 93 21 08/20/16 07:57 98.7 102 19 107/54 96 08/20/16 04:00 96.9 95 22 100/54 94 08/20/16 00:00 96.4 96 22 132/75 94 I/O 08/19/16 08/19/16 08/19/16 08/20/16 08/20/16 08/20/16 07:00 15:00 23:00 07:00 15:00 23:00 Intake Total 100 ml 481 ml 120 ml 240 ml Output Total 215 ml 300 ml 20 ml 170 ml 300 ml 150 ml Balance -115 ml -300 ml -20 ml 311 ml -180 ml 90 ml Intake Oral 100 ml 200 ml 120 ml 240 ml IV Total 281 ml Output Urine Total 175 ml 300 ml 150 ml 300 ml 150 ml Drainage Total 40 ml 0 ml 20 ml 20 ml # Bowel Movements 0 0 Result Diagram: 08/20/16 0549 08/20/16 0549 Objective Remarks GENERAL: patient sitting up in bed. Appears comfortable. Disoriented as before. SKIN: Warm and dry. HEAD: Normocephalic. EYES: No scleral icterus. No injection or drainage. NECK: Supple, trachea midline. No JVD . CARDIOVASCULAR: Regular rate and rhythm without murmurs, gallops, or rubs. RESPIRATORY: Breath sounds equal bilaterally. No accessory muscle use. GASTROINTESTINAL: Abdomen soft, non-tender, nondistended. MUSCULOSKELETAL: No cyanosis, or edema. postoperative hip not examined. Peripheral profusion intact. Negative Homans sign. BACK: Nontender without obvious deformity. No CVA tenderness. A/P Assessment and Plan ==== 08/20/16 Constipation. Laxatives ordered again. Hypokalemia. Resolved after replacement. Monitor. Urinary retention likely secondary to pain/pain medications. Astudillo. Remove within several days with voiding trials. 89yo female patient with a PMH of dementia was sent in from [facility] for possible right hip fracture after outpatient imaging for right hip pain. //Postoperative right hip hemiarthroplasty performed 08/18/16 for impacted comminuted right femoral neck fracture. pain control with oral [place] and IV morphine per orthopedics Activity per orthopedics, WB as tolerated Continue PT //Postoperative constipation. Laxatives ordered again. Monitor. //Alzheimer's Dementia agitation/anxiety Continue home Seroquel, Namenda, Ativan as needed //Sinus tachycardia. Heart rate below 110, with excursion on 08/20 to 130s which went back down. Could likely be secondary to stress, dehydration, deconditioning. Encourage appetite. Small fluid bolus and maintenance fluids. Monitor. //Urinary retention. Likely secondary to pain/pain medications. Astudillo in place. Monitor output. Plan removal within several days. Repeat UA ordered and pending. //Leukocytosis - possibly reactive secondary to injury. Improving. -On 08/17 WBC 12.6 Tmax 99.6 perioperatively. -Chest x-ray with no acute findings, urinalysis with 25 white blood cells, 37 RBCs, however mixed natan. Incentive spirometry //DVT prophylaxis: Lovenox per orthopedic surgery Patient has Court appointed guardian Reina Siddiqi Discharge Planning pending bowel movement. Patient will need SNF/rehabilitation. Appreciate case management assistance. Felice Blackwell MD August 20, 2016 23:54
[2016-08-21] VITALS (7 sets, daily range): BP systolic 117–170; BP diastolic 62–81; PULSE 96–126; RESP 16–17; TEMP 97.3–99.1; O2SAT 95–97
[2016-08-21 05:45] LABS: BLOOD, URINE SMALL (NEG); COMMENT (UR) CATH-CULT NOT IND; CULTURE IF INDICATED CATH CULTURE NOT IND; GLUCOSE,URINE NEG (NEG); KETONE, URINE 10 mg/dL (NEG); MUCUS URINE FEW /lpf (OCC); NITRITE,URINE NEG (NEG); PH, URINE 6.5 (5.0-8.5); SQUAMOUS EPITHELIAL CELL URINE <1 /hpf (0-5); URINE COLOR YELLOW (YELLW/STRAW)
[2016-08-21 07:41] LABS: AUTOMATED NEUTROPHIL # 7.2 TH/MM3 (1.8-7.7); BASOPHIL % 0.5 % (0.0-2.0); EOSINOPHIL # 0.1 TH/MM3 (0-0.4); EOSINOPHIL % 0.6 % (0.0-4.0); HEMATOCRIT 30.9 % (35.0-46.0); HEMO FLAGS DIFF FINAL; LYMPHOCYTE # 0.8 TH/MM3 (1.0-4.8); MEAN CELL VOLUME 91.9 FL (80.0-100.0); MEAN CORPUSCULAR HGB CONC 33.7 % (32.0-36.0); MONO % 4.8 % (0.0-8.0); NEUT % 85.1 % (16.0-70.0); PLATELET COUNT 182 TH/MM3 (150-450); RED BLOOD COUNT 3.37 MIL/MM3 (4.00-5.30); RED CELL DISTRIBUTION WIDTH 13.4 % (11.6-17.2); WHITE BLOOD COUNT 8.4 TH/MM3 (4.0-11.0)
--- NOTE | 2016-08-21 07:48 | PD.ORT.PN ---
Subjective Post Op Day #: 3 Subjective Remarks Sitting upright in bed, less confused this AM. Admits right hip pain well controlled. Objective Vitals Vital Signs Date Time Temp Pulse Resp B/P Pulse Ox O2 Delivery O2 Flow Rate FiO2 08/21/16 03:58 98.2 96 17 142/77 95 08/21/16 00:00 99.0 102 16 117/62 96 08/20/16 20:00 97.5 106 16 124/65 95 08/20/16 19:54 98 08/20/16 15:34 98.9 106 19 139/71 96 08/20/16 11:59 96.9 94 19 116/58 95 08/20/16 09:30 93 21 08/20/16 07:57 98.7 102 19 107/54 96 I/O 08/20/16 08/20/16 08/20/16 08/21/16 08/21/16 08/21/16 07:00 15:00 23:00 07:00 15:00 23:00 Intake Total 481 ml 120 ml 440 ml 240 ml Output Total 170 ml 300 ml 150 ml 150 ml Balance 311 ml -180 ml 290 ml 90 ml Intake Oral 200 ml 120 ml 240 ml 240 ml IV Total 281 ml 200 ml Output Urine Total 150 ml 300 ml 150 ml 150 ml Drainage Total 20 ml # Bowel Movements 0 Result Diagram: 08/21/16 0721 08/20/16 0549 Imaging Last 24 hours Impressions Hip and Pelvis X-Ray 08/18/16 0948 Signed Impressions: Service Date/Time: July 10:32 - CONCLUSION: 1. Postoperative recent right total hip replacement. Previous left hip replacement. Phill Cárdenas MD Procedures right bipolar hip Objective Remarks RLE: dressings clean and dry. intact. NVI. +knee brace Assessment & Plan Problem List: (1) Fracture of femoral neck, right (2) Alzheimer's dementia Assessment and Plan 1) Right Femoral Neck Fx s/p bipolar hemiarthroplasty - POD 3 -WBAT -daily dressing changes -knee brace while in bed -posterior hip precautions -CM for arrangement back to rehab when safe with PT and medically stable -f/u with Garcia or PA in 2 weeks -DVT prophylaxis with lovenox and transition to xarelto on discharge -scripts and 3008 on chart - clear for discharge from an orthopedic standpoint Clapper,Monica Minerva PA August 21, 2016 07:48
[2016-08-21 08:09] LABS: BICARBONATE 26.7 MEQ/L (21.0-32.0); MAGNESIUM 2.5 MG/DL (1.5-2.5); POTASSIUM 3.7 MEQ/L (3.5-5.1)
[2016-08-21] MEDS: cefTRIAXone INJ 1,000 MG in SODIUM CHLORIDE 0.9% INJ 100 ML IV SCH (09:28)
[2016-08-21] MEDS: QUEtiapine FUMARATE 25 MG TAB PO SCH (09:29)
[2016-08-21] MEDS: DOCUSATE SODIUM 100 MG CAP PO SCH ×2 (09:29→20:58)
[2016-08-21] MEDS: SENNOSIDES 8.6 MG TAB PO SCH (09:29)
[2016-08-21] MEDS: ENOXAPARIN SODIUM 30 MG/0.3 ML SYRINGE SQ SCH (09:29)
[2016-08-21] MEDS: ACETAMINOPHEN/HYDROcodone 325 MG/5 MG TAB PO PRN (09:29)
[2016-08-21] MEDS: CHOLECALCIFEROL (VIT D3) 5000 UNIT CAP PO SCH (09:29)
[2016-08-21] MEDS: SODIUM CHLORIDE 0.9% FLUSH 10 ML FLUSH IV FLUSH SCH ×2 (09:38→20:58)
[2016-08-21] MEDS: SODIUM CHLORIDE 0.9% FLUSH 5 ML FLUSH IVF SCH ×2 (09:38→20:57)
[2016-08-21] MEDS: LORazepam 0.5 MG TAB PO PRN ×2 (11:15→20:59)
[2016-08-21] MEDS ORDERED: MAGNESIUM HYDROXIDE SUSP 30 ML CUP PO ONE (12:00)
[2016-08-21] MEDS ORDERED: BISACODYL 10 MG SUPP RECTAL ONE (12:00)
[2016-08-21] MEDS ORDERED: DOCUSATE SODIUM 50 MG/SENNA 8.6 MG TAB PO ONE (12:00)
[2016-08-21] MEDS: METOPROLOL TARTRATE 25 MG TAB PO SCH ×2 (12:59→20:58)
--- NOTE | 2016-08-21 18:42 | RADRPT ---
EXAM DATE/TIME: 08/21/2016 18:17 [facility] COMPARISON: No previous studies available for comparison. INDICATIONS : Fall. RADIATION DOSE: 56.35 CTDIvol (mGy) MEDICAL HISTORY : Cardiovascular disease. Alzheimer's. Dementia. SURGICAL HISTORY : None. ENCOUNTER: Initial ACUITY: 1 day PAIN SCALE: 0/10 LOCATION: Cranial TECHNIQUE: Multiple contiguous axial images were obtained of the head. Using automated exposure control and adj ustment of the mA and/or kV according to patient size, radiation dose was kept as low as reasonably a chievable to obtain optimal diagnostic quality images. FINDINGS: Mild cerebral atrophy is noted. Mild periventricular and subcortical white matter small vessel ische yusra changes are noted bilaterally. There is no acute infarct, acute hemorrhage, mass effect or extra -axial fluid collections. The bone windows are unremarkable. CONCLUSION: 1. Mild cerebral atrophy. 2. Mild periventricular and subcortical white matter small vessel ischemic changes bilaterally. 3. No acute infarct, acute hemorrhage, mass effect or extra-axial fluid collections. Werner Macias MD on August 21, 2016 at 18:35 Board Certified Radiologist. This report was verified electronically.
--- NOTE | 2016-08-21 23:55 | HHI.PR ---
Subjective Remarks Patient seen today around 11 AM. Patient continues to deny pain, however continues disoriented as before. Denies any chest pain or shortness of breath. Nurses subsequently report that patient has not been opening her eyes as much as usual. Have ordered CT head, as patient did have a fall prior to admission. This is negative for acute findings. Objective Vital Signs Date Time Temp Pulse Resp B/P Pulse Ox O2 Delivery O2 Flow Rate FiO2 08/21/16 20:50 97.6 98 16 155/72 96 08/21/16 16:00 98.1 106 16 170/81 95 08/21/16 12:00 97.3 126 16 167/80 96 08/21/16 10:20 95 21 08/21/16 08:00 99.1 110 17 147/73 97 08/21/16 03:58 98.2 96 17 142/77 95 08/21/16 00:00 99.0 102 16 117/62 96 I/O 08/20/16 08/20/16 08/20/16 08/21/16 08/21/16 08/21/16 07:00 15:00 23:00 07:00 15:00 23:00 Intake Total 481 ml 120 ml 440 ml 925 ml 480 ml 240 ml Output Total 170 ml 300 ml 150 ml 150 ml 376 ml 350 ml Balance 311 ml -180 ml 290 ml 775 ml 104 ml -110 ml Intake Oral 200 ml 120 ml 240 ml 240 ml 480 ml 240 ml IV Total 281 ml 200 ml 685 ml Output Urine Total 150 ml 300 ml 150 ml 150 ml 375 ml 350 ml Stool Total 1 ml Drainage Total 20 ml # Bowel Movements 0 1 0 Result Diagram: 08/21/1672008/21/16720 Objective Remarks GENERAL: patient sitting up in bed. Appears comfortable. Disoriented as before.no acute change on exam. SKIN: Warm and dry. HEAD: Normocephalic. EYES: No scleral icterus. No injection or drainage. NECK: Supple, trachea midline. No JVD . CARDIOVASCULAR: Regular rate and rhythm without murmurs, gallops, or rubs. RESPIRATORY: Breath sounds equal bilaterally. No accessory muscle use. GASTROINTESTINAL: Abdomen soft, non-tender, nondistended. MUSCULOSKELETAL: No cyanosis, or edema. postoperative hip not examined. Peripheral profusion intact. Negative Homans sign. BACK: Nontender without obvious deformity. No CVA tenderness. A/P Assessment and Plan ==== 08/21/[address] head ordered due to recent fall. Negative for subdural hematoma. Minimize all sedating medications. TSH ordered and within normal limits. Sinus tachycardia. Possibly secondary to pain. Metoprolol added for heart rate control. Constipation. Laxatives ordered. 89yo female patient with a PMH of dementia was sent in from [facility] for possible right hip fracture after outpatient imaging for right hip pain. //Postoperative right hip hemiarthroplasty performed 08/18/16 for impacted comminuted right femoral neck fracture. pain control with oral [place] and IV morphine per orthopedics Activity per orthopedics, WB as tolerated Continue PT //Postoperative constipation. Laxatives ordered again. Monitor. //Alzheimer's Dementia agitation/anxiety Continue home Seroquel, Namenda, Ativan as needed //Sinus tachycardia. Heart rate below 110, with excursion on 08/20 to 130s which went back down. Could likely be secondary to stress, dehydration, deconditioning. Encourage appetite. Small fluid bolus and maintenance fluids. Monitor. //Urinary retention. Likely secondary to pain/pain medications. Astudillo in place. Monitor output. Plan removal within several days. Repeat UA ordered and pending. //Leukocytosis - possibly reactive secondary to injury. Improving. -On 08/17 WBC 12.6 Tmax 99.6 perioperatively. -Chest x-ray with no acute findings, urinalysis with 25 white blood cells, 37 RBCs, however mixed natan. Incentive spirometry //DVT prophylaxis: Lovenox per orthopedic surgery Patient has Court appointed guardian Reina Siddiqi Discharge Planning pending bowel movement. Patient will need SNF/rehabilitation. Appreciate case management assistance. Felice Blackwell MD August 21, 2016 23:55
[2016-08-22 00:50] VITALS: BP 149/69; PULSE 99; RESP 16; TEMP 99.8; O2SAT 94
[2016-08-22 04:55] VITALS: BP 107/62; PULSE 78; RESP 16; TEMP 98.5; O2SAT 96
[2016-08-22 08:00] VITALS: BP 124/66; PULSE 81; RESP 17; TEMP 96.8; O2SAT 97
--- NOTE | 2016-08-22 09:08 | PD.ORT.PN ---
Subjective Post Op Day #: 4 Subjective Remarks The patient is awake and confused. She is unaware of where she is or why she is here. She has no specific complaint. Objective Vitals Vital Signs Date Time Temp Pulse Resp B/P Pulse Ox O2 Delivery O2 Flow Rate FiO2 08/22/16 04:55 98.5 78 16 107/62 96 08/22/16 00:50 99.8 99 16 149/69 94 08/21/16 20:50 97.6 98 16 155/72 96 08/21/16 16:00 98.1 106 16 170/81 95 08/21/16 12:00 97.3 126 16 167/80 96 08/21/16 10:20 95 21 I/O 08/21/16 08/21/16 08/21/16 08/22/16 08/22/16 08/22/16 07:00 15:00 23:00 07:00 15:00 23:00 Intake Total 925 ml 480 ml 240 ml 120 ml Output Total 150 ml 376 ml 350 ml 450 ml Balance 775 ml 104 ml -110 ml -330 ml Intake Oral 240 ml 480 ml 240 ml 120 ml IV Total 685 ml Output Urine Total 150 ml 375 ml 350 ml 450 ml Stool Total 1 ml # Bowel Movements 1 0 0 Result Diagram: 08/21/16 0721 08/21/16 0721 Imaging Last 24 hours Impressions Hip and Pelvis X-Ray 08/18/16 0948 Signed Impressions: Service Date/Time: July 10:32 - CONCLUSION: 1. Postoperative recent right total hip replacement. Previous left hip replacement. Phill Cárdenas MD Procedures right bipolar hip Objective Remarks RLE: dressings clean and dry. intact. NVI. +knee brace Assessment & Plan Problem List: (1) Fracture of femoral neck, right (2) Alzheimer's dementia Assessment and Plan 1) Right Femoral Neck Fx s/p bipolar hemiarthroplasty - POD 4 -WBAT -daily dressing changes -knee brace while in bed -posterior hip precautions -CM for arrangement back to rehab when safe with PT and medically stable -f/u with Garcia or PA in 2 weeks -DVT prophylaxis with lovenox and transition to xarelto on discharge -scripts and 3008 on chart - clear for discharge from an orthopedic standpoint Caio Araujo MD August 22, 2016 09:08
[2016-08-22] MEDS ORDERED: TEMA15CA PO (09:42)
[2016-08-22] MEDS ORDERED: METO25TA3 PO (09:43)
[2016-08-22] MEDS: LORazepam 0.5 MG TAB PO PRN (09:55)
[2016-08-22] MEDS: CHOLECALCIFEROL (VIT D3) 5000 UNIT CAP PO SCH (09:55)
[2016-08-22] MEDS: DOCUSATE SODIUM 100 MG CAP PO SCH (09:55)
[2016-08-22] MEDS: SENNOSIDES 8.6 MG TAB PO SCH (09:55)
[2016-08-22] MEDS: ENOXAPARIN SODIUM 30 MG/0.3 ML SYRINGE SQ SCH (09:55)
[2016-08-22] MEDS: METOPROLOL TARTRATE 25 MG TAB PO SCH (09:55)
[2016-08-22] MEDS: SODIUM CHLORIDE 0.9% FLUSH 5 ML FLUSH IVF SCH (09:56)
[2016-08-22] MEDS: SODIUM CHLORIDE 0.9% FLUSH 10 ML FLUSH IV FLUSH SCH (09:56)
[2016-08-22 12:00] VITALS: BP 135/65; PULSE 95; RESP 17; TEMP 95.9; O2SAT 98
--- NOTE | 2016-08-25 08:32 | HHI.DS ---
Discharge Summary Admission Date August 17, 2016 at 21:46 Discharge Date: August 22, 2016 Admitting Diagnosis Right femoral neck fracture (1) Fracture of femoral neck, right ICD Code: S72.001A (2) Alzheimer's dementia ICD Code: G30.9 Procedures right hip hemiarthroplasty performed 08/18/16 for impacted comminuted right femoral neck fracture. Brief History - From Admission Written by Ruba Montgomery, acting as scribe for Dr. Vinson on 08/17/16 at 22: 35. This is an 89yo female patient with a PMH of dementia was sent in from [facility] for possible right hip fracture. Patient unable to provide meaningful information, therefore information gathered from patient's caregivers at bedside, prior documentation and SNF information. Patient is a resident at [facility] memory unit. Per caregiver report patient was walking and seemed to be herself then in the afternoon patient began to complain about severe right hip pain and was unable to walk. Outpatient X rays were obtained. Outpatient xray of thoracic spine, lumbar spine showed no acute fractures. Osteopenia. Xray right hip showed shortening of the femoral neck highly suspicious for acute femoral neck fracture. No evidence of dislocation. Osteopenia. Patient sent to the ER for further evaluation. Patient does not remember if she fell down or not. Per caregiver there were no witnessed falls during he day. Patient has caregivers 7AM- 7PM. They are concerned that she fell sometime during the night, but again there was no report of witnessed fall. Pt denies any chest pain, sob, n/v, abdominal pain, focal weakness or numbness. Lower extremity CT reveals: 1. Impacted comminuted right femoral neck fracture. CBC/BMP: 08/21/16 0721 08/21/16 0721 Imaging Last Impressions Head CT 08/21/16 0000 Signed Impressions: Service Date/Time: Sunday, August 21, 2016 18:17 - CONCLUSION: 1. Mild cerebral atrophy. 2. Mild periventricular and subcortical white matter small vessel ischemic changes bilaterally. 3. No acute infarct, acute hemorrhage, mass effect or extra-axial fluid collections. Werner Macias MD Hip and Pelvis X-Ray 08/18/16 0948 Signed Impressions: Service Date/Time: July 10:32 - CONCLUSION: 1. Postoperative recent right total hip replacement. Previous left hip replacement. Phill Cárdenas MD Chest X-Ray 08/18/16 0000 Signed Impressions: Service Date/Time: , August 18, 2016 16:28 - CONCLUSION: No acute disease. Matt Carter MD Lower Extremity CT 08/17/16 0000 Signed Impressions: Service Date/Time: Wednesday, August 17, 2016 20:42 - CONCLUSION: 1. Impacted comminuted right femoral neck fracture. Brijesh Amaro MD PE at Discharge GENERAL: Well-developed well-nourished. In no acute distress. SKIN: Warm and dry. No lesions noted. HEENT: Normocephalic. Pupils equal and round. Mucous membranes pink and moist. CARDIOVASCULAR: Regular rate and rhythm. No murmur appreciated. RESPIRATORY: No accessory muscle use. Clear to auscultation. Breath sounds equal bilaterally. GASTROINTESTINAL: Abdomen soft, non-tender, nondistended. Bowel sounds x4. MUSCULOSKELETAL: Right hip with postoperative dressing, CDI. No clubbing or cyanosis. No edema. NEUROLOGICAL: Awake and alert. No focal neurological deficits. Moves upper and lower extremities spontaneously. Normal speech. PSYCHIATRIC: Pleasantly confused mood and affect; insight and judgment limited. Pt update on day of discharge patient continues confused, however denies any pain. Appears comfortable. Hospital Course Patient underwent right hip hemiarthroplasty on 08/18 for impacted comminuted right femoral neck fracture. Patient with severe chronic dementia, did experience hospital delirium, however CT negative for any acute findings. Improved with constant reorientation and reassurance. Postoperative constipation resolved after laxatives. Patient does have some urinary retention , likely secondary to pain/pain medications. Astudillo required, will need voiding trials at receiving facility.. ==== 08/21/[address] head ordered due to recent fall. Negative for subdural hematoma. Minimize all sedating medications. TSH ordered and within normal limits. Sinus tachycardia. Possibly secondary to pain. Metoprolol added for heart rate control. Constipation. Laxatives ordered. 89yo female patient with a PMH of dementia was sent in from [facility] for possible right hip fracture after outpatient imaging for right hip pain. //Postoperative right hip hemiarthroplasty performed 08/18/16 for impacted comminuted right femoral neck fracture. pain control with oral [place] and IV morphine per orthopedics Activity per orthopedics, WB as tolerated Continue PT //Postoperative constipation. Laxatives ordered again. Monitor. //Alzheimer's Dementia agitation/anxiety Continue home Seroquel, Namenda, Ativan as needed //Sinus tachycardia. Heart rate below 110, with excursion on 08/20 to 130s which went back down. Could likely be secondary to stress, dehydration, deconditioning. Encourage appetite. Small fluid bolus and maintenance fluids. Monitor. //Urinary retention. Likely secondary to pain/pain medications. Astudillo in place. Monitor output. Plan removal within several days. Repeat UA ordered and pending. //Leukocytosis - possibly reactive secondary to injury. Improving. -On 08/17 WBC 12.6 Tmax 99.6 perioperatively. -Chest x-ray with no acute findings, urinalysis with 25 white blood cells, 37 RBCs, however mixed natan. Incentive spirometry //DVT prophylaxis: Lovenox per orthopedic surgery Patient has Court appointed guardian Reina Siddiqi Discharge Planning pending bowel movement. Patient will need SNF/rehabilitation. Appreciate case management assistance. Pt Condition on Discharge: Good Discharge Disposition: Discharge to SNF Discharge Time: <= 30 minutes Discharge Instructions DIET: Follow Instructions for: Diabetic Diet Activities you can perform: Weight Bearing as Reggie Follow up Referrals: Orthopedics - 09/01/16 @ [facility] with Anthony Garcia MD New Medications: Calcium Carbonate-Vitamin D (Calcium 600+D 200) 600-200 Mg-Unit Tab 1 TAB PO BID Nutritional Supplement Days 30 Ref 0 TAB Cholecalciferol (Vitamin D3) 2,000 Unit Cap 2000 UNITS PO DAILY Nutritional Supplement #56 Ref 0 CAP Ergocalciferol (Ergocalciferol) 50,000 Unit Cap 60980 UNITS PO Q7D Nutritional Supplement #56 CAP Hydrocodone-Acetaminophen ([place]) 5-325 mg Tab 1 TAB PO Q4H PRN PAIN #60 Ref 0 TAB Rivaroxaban (Xarelto) 10 Mg Tab 10 MG PO DAILY Blood Clot Prevention #14 Ref 0 TAB Metoprolol Tartrate (Metoprolol Tartrate) 25 Mg Tab 12.5 MG PO Q12HR heart rate Days 30 TAB Continued Medications: Ergocalciferol (Vitamin D2) 400 Unit Tab 20998 UNITS PO WEEKLY Nutritional Supplement Ref 0 TAB Fluticasone Nasal [place] (Flonase Nasal [place]) 50 Mcg/Act [place] 50 MCG EACH NARE DAILY Allergies #1 Ref 0 BOTTLE Memantine Er (Namenda Xr) 21 Mg Caper 21 MG PO DAILY Alzheimer Disease #30 Ref 0 CAP Temazepam (Temazepam) 15 Mg Cap 15 MG PO HS PRN INSOMNIA #3 Ref 0 CAP (This prescription has been renewed) Discontinued Medications: Acetaminophen (Tylenol) 325 Mg Tab 650 MG PO TID PRN PAIN SCALE 1 TO 5 Ref 0 TAB Denosumab Inj (Prolia Inj) 60 Mg/Ml Inj 60 MG SQ Q180D Ref 0 VIAL Lorazepam (Ativan) 0.5 Mg Tab 0.5 MG PO BID PRN ANXIETY AND/OR AGITATION Ref 0 TAB Quetiapine (Seroquel) 25 Mg Tab 12.5 MG PO BID #60 Ref 0 TAB Felice Blackwell MD Aug 25, 2016 08:32
== END 2016-08-22 13:39 | DRG 470 ==
LOC: NEPE 20:09 → NEDA 21:46 → NEPHCDU 23:23 → N06B 08-18 07:50 → N06A 08-18 13:33
PROVIDERS: ADMIT Internal Medicine; ATTEND Internal Medicine
PROC: 0SRR0JA Replacement of Right Hip Joint, Femoral Surface with Synthetic Substitute, Uncemented, Open Approach (ICD-10-PCS; principal; 2016-08-18 08:38)
DX: S72.001A Fracture of unspecified part of neck of right femur, initial encounter for closed fracture (principal); G30.9 Alzheimer's disease, unspecified; F05 Delirium due to known physiological condition; E86.0 Dehydration; F03.90 Unspecified dementia, unspecified severity, without behavioral disturbance, psychotic disturbance, mood disturbance, and anxiety; Y92.129 Unspecified place in nursing home as the place of occurrence of the external cause; F02.80 Dementia in other diseases classified elsewhere, unspecified severity, without behavioral disturbance, psychotic disturbance, mood disturbance, and anxiety; F41.9 Anxiety disorder, unspecified; W18.30XA Fall on same level, unspecified, initial encounter; R33.9 Retention of urine, unspecified; K59.00 Constipation, unspecified; E87.6 Hypokalemia; M81.0 Age-related osteoporosis without current pathological fracture; Z87.891 Personal history of nicotine dependence
CPT/HCPCS: 70450; 71010; 73502; 73700; 80048; 80053; 80069; 81001; 82306; 83735; 84443; 85025; 85610; 85730; 86850; 86900; 86901; 87086; 93005; 99285; C1776; J0690; J0696; J1580; J1650; J2270; J2370; J3370; J7030; J7050; L1830